=== PATIENT | male | born 1985 | race Hispanic/Latino ===

== ENCOUNTER 2021-09-28 19:16 | Emergency (ER) | payer BC, OTHER ==
[~2021-09-28] VITALS: Ht 167.6 cm; Wt 72.6 kg
[2021-09-28] MEDS ORDERED: LACTATED RINGER'S 1,000 ML INJ ONE ×2 (19:45→21:15)
[2021-09-28 19:50] LABS: BASOPHILS # (AUTO) 0.1 (0.0-0.1); BASOPHILS % 1.1 % (0.0-1.0); EOSINOPHILS # (AUTO) 0.1 (0.0-0.4); EOSINOPHILS % 2.2 % (0.0-6.0); HEMATOCRIT 40.1 % (38.2-49.6); LYMPHOCYTES # (AUTO) 2.3 (1.0-3.2); LYMPHOCYTES % 35.3 % (18.0-39.1); MEAN CORPUSCULAR HEMOGLOBIN 33.5 pg (28-32); MEAN CORPUSCULAR HGB CONC 34.9 g/dL (31-35); MEAN CORPUSCULAR VOLUME 95.9 fL (81-99); MONOCYTES # (AUTO) 0.8 (0.2-0.8); NEUTROPHILS # (AUTO) 3.1 (2.1-6.9); NEUTROPHILS % 48.6 % (38.7-80.0); PLATELET COUNT 358 x10e3/uL (140-360); RED BLOOD COUNT 4.18 x10e6/uL (4.3-5.7); RED CELL DISTRIBUTION WIDTH 12.6 % (11.7-14.4)
[2021-09-28 20:13] LABS: ALBUMIN 3.5 g/dL (3.5-5.0); ALBUMIN/GLOBULIN RATIO 0.9 (0.8-2.0); ANION GAP 18.6 mmol/L (8-16); CALCIUM 8.4 mg/dL (8.4-10.2); CREATININE, SERUM 0.76 mg/dL (0.72-1.25); POTASSIUM 3.6 mmol/L (3.5-5.1)
[2021-09-28 20:17] LABS: SALICYLATE < 5.0 mg/dL (0-30)
[2021-09-28 20:58] LABS: CLARITY,URINE CLEAR (CLEAR); COLOR,URINE YELLOW (YELLOW)
[2021-09-28 20:59] LABS: AMPHETAMINES SCREEN,URINE NEGATIVE (NEGATIVE); BENZODIAZEPINES SCREEN,URINE NEGATIVE (NEGATIVE); KETONES,URINE 1+ (NEGATIVE); LEUKOCYTE ESTERASE ,URINE NEGATIVE (NEGATIVE); NITRITE,URINE NEGATIVE (NEGATIVE); PHENCYCLIDINE SCREEN,URINE NEGATIVE (NEGATIVE); PROTEIN,URINE DIPSTICK NEGATIVE (NEGATIVE); URINE UROBILINOGEN 0.2 mg/dL (0.2 - 1)
== END 2021-09-28 21:36 | disposition home or self-care (01) ==
LOC: ER 19:32
DX: F10.10 Alcohol abuse, uncomplicated (principal); E11.65 Type 2 diabetes mellitus with hyperglycemia
CPT/HCPCS: 36415; 70450; 71045; 80053; 80307; 80320; 80329 ×2; 81001; 82948; 84484; 85025; 93005; 99284; J7121

== ENCOUNTER 2022-09-28 03:58 | Emergency (ER) | payer SELFPAY ==
[~2022-09-28] VITALS: Ht 170.2 cm; Wt 52.6 kg
[2022-09-28] MEDS ORDERED: SODIUM CHLORIDE 0.9% 1000ML 1,000 ML IV STA ×2 (04:12→06:04)
[2022-09-28 05:09] LABS: BASOPHILS % 0.5 % (0.0-1.0); EOSINOPHILS # (AUTO) 0.1 (0.0-0.4); EOSINOPHILS % 1.4 % (0.0-6.0); HEMATOCRIT 40.3 % (38.2-49.6); HEMOGLOBIN 14.1 g/dL (14.0-18.0); LYMPHOCYTES # (AUTO) 2.6 (1.0-3.2); LYMPHOCYTES % 36.1 % (18.0-39.1); MEAN CORPUSCULAR HEMOGLOBIN 33.4 pg (28-32); MEAN CORPUSCULAR VOLUME 95.5 fL (81-99); MONOCYTES # (AUTO) 0.9 (0.2-0.8); MONOCYTES % 12.6 % (4.4-11.3); NEUTROPHILS # (AUTO) 3.5 (2.1-6.9); NEUTROPHILS % 48.2 % (38.7-80.0); PLATELET COUNT 372 x10e3/uL (140-360); RED BLOOD COUNT 4.22 x10e6/uL (4.3-5.7); RED CELL DISTRIBUTION WIDTH 11.8 % (11.7-14.4)
[2022-09-28] MEDS ORDERED: SODIUM CHLORIDE 0.9% 1000ML 1,000 ML IV ONE (05:15)
[2022-09-28 05:21] LABS: ALANINE AMINOTRANSFERASE 14 IU/L (0-55); ALBUMIN 3.8 g/dL (3.5-5.0); ALBUMIN/GLOBULIN RATIO 1.2 (0.8-2.0); ALKALINE PHOSPHATASE 131 IU/L (40-150); ANION GAP 15.5 mmol/L (8-16); BLOOD UREA NITROGEN 15 mg/dL (7-26); BUN/CREATININE RATIO 16 (6-25); CALCIUM 9.5 mg/dL (8.4-10.2); CARBON DIOXIDE 23 mmol/L (22-29); CHLORIDE 103 mmol/L (98-107); CREATINE KINASE 51 IU/L (30-200); CREATININE, SERUM 0.93 mg/dL (0.72-1.25); GLUCOSE 226 mg/dL (74-118); POTASSIUM 3.5 mmol/L (3.5-5.1); SODIUM 138 mmol/L (136-145)
[2022-09-28] MEDS ORDERED: KETOROLAC TROMETHAMINE 30 MG/ML VIAL IV STA (05:44)
[2022-09-28 07:24] VITALS: BP 122/82; PULSE 100; RESP 16; TEMP 98.6; O2SAT 100
[2022-09-29] MEDS ORDERED: ATIVAN1 MG PO ×2 (00:30→00:40)
== END 2022-09-28 07:20 | disposition home or self-care (01) ==
LOC: ER 04:02
DX: R06.02 Shortness of breath (principal); R00.0 Tachycardia, unspecified; M79.10 Myalgia, unspecified site; F14.10 Cocaine abuse, uncomplicated; R94.31 Abnormal electrocardiogram [ECG] [EKG]
CPT/HCPCS: 36415; 71045; 80053; 82550; 82553; 83690; 83880; 84484; 85025; 93005; 99284; J1885; J7030

== ENCOUNTER 2022-09-28 20:19 | Emergency (ER) | payer SELFPAY ==
[~2022-09-28] VITALS: Ht 170.2 cm; Wt 52.6 kg
[2022-09-28] MEDS ORDERED: SODIUM CHLORIDE 0.9% 1000ML 1,000 ML IV STA ×2 (20:21)
[2022-09-28] MEDS ORDERED: KETOROLAC TROMETHAMINE 30 MG/ML VIAL IV STA (20:21)
[2022-09-28 21:09] LABS: BASOPHILS # (AUTO) 0.1 (0.0-0.1); BASOPHILS % 0.7 % (0.0-1.0); EOSINOPHILS # (AUTO) 0.2 (0.0-0.4); EOSINOPHILS % 2.6 % (0.0-6.0); HEMATOCRIT 40.3 % (38.2-49.6); HEMOGLOBIN 13.9 g/dL (14.0-18.0); LYMPHOCYTES # (AUTO) 2.1 (1.0-3.2); LYMPHOCYTES % 29.5 % (18.0-39.1); MEAN CORPUSCULAR HEMOGLOBIN 33.3 pg (28-32); MEAN CORPUSCULAR HGB CONC 34.5 g/dL (31-35); MEAN CORPUSCULAR VOLUME 96.4 fL (81-99); MONOCYTES # (AUTO) 0.8 (0.2-0.8); NEUTROPHILS # (AUTO) 3.8 (2.1-6.9); NEUTROPHILS % 53.6 % (38.7-80.0); PLATELET COUNT 449 x10e3/uL (140-360); RED BLOOD COUNT 4.18 x10e6/uL (4.3-5.7); RED CELL DISTRIBUTION WIDTH 11.8 % (11.7-14.4)
[2022-09-28 21:17] LABS: CLARITY,URINE CLEAR (CLEAR); COLOR,URINE YELLOW (YELLOW); KETONES,URINE TRACE (NEGATIVE); LEUKOCYTE ESTERASE ,URINE NEGATIVE (NEGATIVE); NITRITE,URINE NEGATIVE (NEGATIVE); PROTEIN,URINE DIPSTICK NEGATIVE (NEGATIVE)
[2022-09-28 21:18] LABS: URINE UROBILINOGEN 0.2 mg/dL (0.2 - 1)
[2022-09-28 21:21] LABS: AMPHETAMINES SCREEN,URINE NEGATIVE (NEGATIVE); BENZODIAZEPINES SCREEN,URINE NEGATIVE (NEGATIVE); PHENCYCLIDINE SCREEN,URINE NEGATIVE (NEGATIVE)
[2022-09-28 21:31] LABS: ALANINE AMINOTRANSFERASE 18 IU/L (0-55); ALBUMIN 3.9 g/dL (3.5-5.0); ALBUMIN/GLOBULIN RATIO 1.2 (0.8-2.0); ALKALINE PHOSPHATASE 114 IU/L (40-150); ANION GAP 16.1 mmol/L (8-16); BLOOD UREA NITROGEN 11 mg/dL (7-26); BUN/CREATININE RATIO 16 (6-25); CALCIUM 9.7 mg/dL (8.4-10.2); CARBON DIOXIDE 20 mmol/L (22-29); CHLORIDE 107 mmol/L (98-107); CREATINE KINASE 69 IU/L (30-200); CREATININE, SERUM 0.69 mg/dL (0.72-1.25); GLUCOSE 167 mg/dL (74-118); POTASSIUM 3.1 mmol/L (3.5-5.1); SODIUM 140 mmol/L (136-145)
[2022-09-28] MEDS ORDERED: LORAZEPAM INJ 2 MG/ML VIAL IV STA (23:33)
[2022-09-28] MEDS ORDERED: METOPROLOL TARTRATE INJ 1 MG/ML VIAL IV STA (23:33)
[2022-09-29] MEDS ORDERED: ATIVAN1 MG PO ×2 (00:30→00:40)
[2022-09-29 00:34] VITALS: O2SAT 100
== END 2022-09-29 00:36 | disposition home or self-care (01) ==
LOC: ER 20:21
DX: R00.0 Tachycardia, unspecified (principal); M79.18 Myalgia, other site; F14.10 Cocaine abuse, uncomplicated; M79.605 Pain in left leg; M79.604 Pain in right leg; R94.31 Abnormal electrocardiogram [ECG] [EKG]
CPT/HCPCS: 36415; 80053; 80307; 81001; 82550; 82553; 83690; 84484; 85025; 93005; 93970; 99284; J1885; J2060; J7030

== ENCOUNTER 2023-07-05 13:37 | Inpatient (IN) | payer BC, OTHER ==
[2023-07-05] VITALS (10 sets, daily range): BP systolic 95–148; BP diastolic 61–105; PULSE 100–111; RESP 18–24; TEMP 97.6–98.6; O2SAT 97–100
[~2023-07-05] VITALS: Ht 170.2 cm; Wt 58.1 kg
[~2023-07-05 13:37] MED LIST: ATIVAN1 MG PO
[2023-07-05 14:36] LABS: BASOPHILS # (AUTO) 0.1 (0.0-0.1); BASOPHILS % 1.2 % (0.0-1.0); EOSINOPHILS # (AUTO) 0.2 (0.0-0.4); EOSINOPHILS % 3.8 % (0.0-6.0); HEMATOCRIT 48.5 % (38.2-49.6); HEMOGLOBIN 16.6 g/dL (14.0-18.0); LYMPHOCYTES # (AUTO) 1.2 (1.0-3.2); LYMPHOCYTES % 20.8 % (18.0-39.1); MEAN CORPUSCULAR HEMOGLOBIN 32.3 pg (28-32); MEAN CORPUSCULAR HGB CONC 34.2 g/dL (31-35); MEAN CORPUSCULAR VOLUME 94.4 fL (81-99); MONOCYTES # (AUTO) 0.4 (0.2-0.8); MONOCYTES % 6.3 % (4.4-11.3); NEUTROPHILS % 67.4 % (38.7-80.0); PLATELET COUNT 394 x10e3/uL (140-360); RED BLOOD COUNT 5.14 x10e6/uL (4.3-5.7); RED CELL DISTRIBUTION WIDTH 12.4 % (11.7-14.4); WHITE BLOOD COUNT 5.86 x10e3/uL (4.8-10.8)
[2023-07-05 14:38] LABS: INR 0.76; PROTHROMBIN TIME 10.8 seconds (11.9-14.5)
[2023-07-05] MEDS: SODIUM CHLORIDE 0.9% 1000ML 1,000 ML IV STA ×2 (14:38→15:20)
[2023-07-05 14:39] LABS: PARTIAL THROMBOPLASTIN TIME 31.4 seconds (23.8-35.5)
[2023-07-05 14:46] LABS: ALANINE AMINOTRANSFERASE 18 IU/L (0-55); ALBUMIN 4.2 g/dL (3.5-5.0); ALBUMIN/GLOBULIN RATIO 0.9 (0.8-2.0); ALKALINE PHOSPHATASE 224 IU/L (40-150); ANION GAP 25.2 mmol/L (8-16); BILIRUBIN,TOTAL 0.4 mg/dL (0.2-1.2); BLOOD UREA NITROGEN 8 mg/dL (7-26); BUN/CREATININE RATIO 5 (6-25); CALCIUM 9.9 mg/dL (8.4-10.2); CARBON DIOXIDE 10 mmol/L (22-29); CHLORIDE 86 mmol/L (98-107); CREATINE KINASE 370 IU/L (30-200); CREATININE, SERUM 1.52 mg/dL (0.72-1.25); EST GLOMERULAR FILTRATION RATE 59 ML/MIN (>=60); LIPASE 79 U/L (8-78); MAGNESIUM 1.9 MG/DL (1.3-2.1); POTASSIUM 4.2 mmol/L (3.5-5.1); TOTAL PROTEIN 9.1 g/dL (6.5-8.1)
[2023-07-05 14:48] LABS: CLARITY,URINE CLEAR (CLEAR); COLOR,URINE YELLOW (YELLOW); GLUCOSE, URINE 500 (NEGATIVE); LEUKOCYTE ESTERASE ,URINE NEGATIVE (NEGATIVE); NITRITE,URINE NEGATIVE (NEGATIVE); PH,URINE 5 (5 - 7); PROTEIN,URINE DIPSTICK NEGATIVE (NEGATIVE)
[2023-07-05 14:49] LABS: BILIRUBIN,URINE NEGATIVE (NEGATIVE); KETONES,URINE 2+ (NEGATIVE); URINE UROBILINOGEN 0.2 mg/dL (0.2 - 1)
[2023-07-05 14:52] LABS: AMPHETAMINES SCREEN,URINE NEGATIVE (NEGATIVE); BENZODIAZEPINES SCREEN,URINE NEGATIVE (NEGATIVE); CANNABINOIDS SCREEN,URINE POSITIVE (NEGATIVE); METHADONE SCREEN, URINE NEGATIVE (NEGATIVE); OPIATES SCREEN,URINE NEGATIVE (NEGATIVE); PHENCYCLIDINE SCREEN,URINE NEGATIVE (NEGATIVE)
[2023-07-05 14:57] LABS: TROPONIN I < 0.001 ng/mL (0-0.300)
[2023-07-05 14:59] LABS: SODIUM 117 mmol/L (136-145)
[2023-07-05] MEDS: INSULIN REGULAR, HUMAN 100 UNIT/1 ML IV ONE (14:59)
[2023-07-05] MEDS: KETOROLAC TROMETHAMINE 30 MG/ML VIAL IV STA (15:04)
[2023-07-05 15:05] LABS: RBC,URINE 0-5 /HPF (0-5)
[2023-07-05 15:07] LABS: GLUCOSE 844 mg/dL (74-118)
[2023-07-05] MEDS ORDERED: IOPAMIDOL 370 MG/ML 100 ML INFUS..BTL INJ ONE (15:11)
[2023-07-05] MEDS: INSULIN REGULAR, HUMAN 3ML VL 100 UNIT in SODIUM CHLORIDE 0.9% 100 ML IV SCH (15:38)
[2023-07-05] MEDS: SODIUM CHLORIDE 0.9% 1000ML 1,000 ML IV SCH (16:52)
[2023-07-05] MEDS ORDERED: GLIPIZIDE5 MG PO (17:05)
[2023-07-05] MEDS ORDERED: EFFEXOR XR150 MG PO (17:05)
[2023-07-05] MEDS ORDERED: HUMULIN R100 UNIT/2 INJ (17:05)
[2023-07-05] MEDS ORDERED: NOVOLOG100 UNIT/1 SC (17:05)
[2023-07-05] MEDS ORDERED: LISINOPRIL20 MG PO (17:05)
[2023-07-05] MEDS ORDERED: FIASP 100100 UNIT/1 (17:05)
[2023-07-05] MEDS ORDERED: BUSPIRONE HCL10 MG PO (17:05)
[2023-07-05] MEDS ORDERED: NEURONTIN300 MG PO (17:05)
[2023-07-05] MEDS ORDERED: TRESIBA100 UNIT/1 (17:05)
[2023-07-05] MEDS ORDERED: LABETALOL HCL 5 MG/ML 20ML VIAL IV PRN (17:15)
[2023-07-05] MEDS: DEXTROSE 5%/0.45% SOD CHL 1,000 ML IV SCH (18:04)
[2023-07-05] MEDS: ONDANSETRON HCL INJ 2MG/ML 2ML 2 MG/ML VIAL IV STA (18:21)
[2023-07-05 18:28] LABS: ANION GAP 14.6 mmol/L (8-16); CREATININE, SERUM 0.69 mg/dL (0.72-1.25); MAGNESIUM 1.5 MG/DL (1.3-2.1)
[2023-07-05 18:30] LABS: POTASSIUM 2.6 mmol/L (3.5-5.1)
[2023-07-05] MEDS: POTASSIUM CHLORIDE 20MEQ/100ML 200 ML IV PRN ×2 (18:49→21:00)
[2023-07-05] MEDS ORDERED: POTASSIUM CHLORIDE 20MEQ/100ML 100 ML ONE (18:51)
[2023-07-05] MEDS: ALPRAZOLAM 0.5 MG TAB PO PRN (20:09)
[2023-07-05] MEDS: TRAZODONE HCL 50 MG TAB PO PRN (20:09)
[2023-07-05] MEDS: GABAPENTIN 300 MG CAP PO SCH (20:09)
[2023-07-05 22:33] LABS: ANION GAP 16.4 mmol/L (8-16); CALCIUM 8.7 mg/dL (8.4-10.2); CREATININE, SERUM 0.63 mg/dL (0.72-1.25); MAGNESIUM 1.7 MG/DL (1.3-2.1)
[2023-07-05 22:55] LABS: POTASSIUM 3.4 mmol/L (3.5-5.1)
[2023-07-05 22:58] LABS: TROPONIN I 0.004 ng/mL (0-0.300)
[2023-07-05] MEDS: POTASSIUM CHLORIDE 20MEQ/100ML 100 ML IV PRN (23:42)
[2023-07-05] MEDS: MAGNESIUM SULF 1GRAM/DEXTROSE 100 ML IV PRN (23:43)
[2023-07-05] MEDS: MAGNESIUM SULF 1GRAM/DEXTROSE 100 ML IV ONE (23:44)
[2023-07-06] VITALS (27 sets, daily range): BP systolic 86–147; BP diastolic 54–100; PULSE 68–122; RESP 17–30; TEMP 97.8–98.2; O2SAT 82–100
[2023-07-06 00:32] LABS: ANION GAP 12.5 mmol/L (8-16); CALCIUM 8.7 mg/dL (8.4-10.2); CREATININE, SERUM 0.64 mg/dL (0.72-1.25); MAGNESIUM 1.7 MG/DL (1.3-2.1); POTASSIUM 3.5 mmol/L (3.5-5.1)
[2023-07-06 06:08] LABS: BASOPHILS # (AUTO) 0.1 (0.0-0.1); BASOPHILS % 1.1 % (0.0-1.0); EOSINOPHILS # (AUTO) 0.7 (0.0-0.4); EOSINOPHILS % 13.1 % (0.0-6.0); HEMATOCRIT 40.3 % (38.2-49.6); HEMOGLOBIN 13.4 g/dL (14.0-18.0); LYMPHOCYTES # (AUTO) 1.6 (1.0-3.2); LYMPHOCYTES % 28.5 % (18.0-39.1); MEAN CORPUSCULAR HEMOGLOBIN 31.1 pg (28-32); MEAN CORPUSCULAR HGB CONC 33.3 g/dL (31-35); MEAN CORPUSCULAR VOLUME 93.5 fL (81-99); MONOCYTES # (AUTO) 0.7 (0.2-0.8); MONOCYTES % 12.9 % (4.4-11.3); NEUTROPHILS # (AUTO) 2.5 (2.1-6.9); NEUTROPHILS % 44.2 % (38.7-80.0); PLATELET COUNT 293 x10e3/uL (140-360); RED BLOOD COUNT 4.31 x10e6/uL (4.3-5.7); RED CELL DISTRIBUTION WIDTH 12.2 % (11.7-14.4); WHITE BLOOD COUNT 5.65 x10e3/uL (4.8-10.8)
[2023-07-06 06:29] LABS: CREATINE KINASE 268 IU/L (30-200)
[2023-07-06 06:37] LABS: TROPONIN I < 0.001 ng/mL (0-0.300)
[2023-07-06 07:20] LABS: ANION GAP 10.1 mmol/L (8-16); CALCIUM 8.2 mg/dL (8.4-10.2); CREATININE, SERUM 0.59 mg/dL (0.72-1.25); MAGNESIUM 1.9 MG/DL (1.3-2.1)
[2023-07-06 07:26] LABS: POTASSIUM 3.1 mmol/L (3.5-5.1)
[2023-07-06] MEDS: VENLAFAXINE HCL 75 MG CAPCR PO SCH (08:09)
[2023-07-06] MEDS: BUSPIRONE HCL 5 MG TAB PO SCH (08:09)
[2023-07-06 11:19] LABS: ANION GAP 9.7 mmol/L (8-16); CALCIUM 8.3 mg/dL (8.4-10.2); CARBON DIOXIDE 18 mmol/L (22-29); CHLORIDE 111 mmol/L (98-107); CREATININE, SERUM 0.57 mg/dL (0.72-1.25); EST GLOMERULAR FILTRATION RATE 127 ML/MIN (>=60); GLUCOSE 133 mg/dL (74-118); MAGNESIUM 1.8 MG/DL (1.3-2.1); POTASSIUM 3.7 mmol/L (3.5-5.1); SODIUM 135 mmol/L (136-145)
[2023-07-06 11:22] LABS: BUN/CREATININE RATIO 9 (6-25)
[2023-07-06 11:34] LABS: BLOOD UREA NITROGEN < 5 mg/dL (7-26)
[2023-07-06] MEDS ORDERED: [UNRECOGNIZED DRUG - OTHER] (12:13)
[2023-07-06] MEDS ORDERED: [UNRECOGNIZED DRUG - OTHER] (12:13)
[2023-07-06] MEDS ORDERED: LANTUS 3ML100 UNITS/ SC (12:13)
[2023-07-06] MEDS ORDERED: GLIMEPIRIDE2 MG PO (12:13)
[2023-07-06] MEDS ORDERED: [UNRECOGNIZED DRUG - OTHER] (12:13)
[2023-07-06] MEDS ORDERED: ABILIFY5 MG PO (12:13)
[2023-07-06] MEDS ORDERED: HYDROX PO (12:13)
[2023-07-06] MEDS: ARIPIPRAZOLE 5 MG TABLET PO SCH (14:20)
[2023-07-06 14:41] LABS: CREATINE KINASE 226 IU/L (30-200)
[2023-07-06 14:52] LABS: TROPONIN I < 0.001 ng/mL (0-0.300)
[2023-07-06 15:01] LABS: ANION GAP 11.6 mmol/L (8-16); CALCIUM 8.3 mg/dL (8.4-10.2); CREATININE, SERUM 0.62 mg/dL (0.72-1.25); POTASSIUM 3.6 mmol/L (3.5-5.1)
[2023-07-06 18:28] LABS: ANION GAP 8.9 mmol/L (8-16); BLOOD UREA NITROGEN < 5 mg/dL (7-26); BUN/CREATININE RATIO 8 (6-25); CALCIUM 7.2 mg/dL (8.4-10.2); CARBON DIOXIDE 16 mmol/L (22-29); CHLORIDE 115 mmol/L (98-107); CREATININE, SERUM 0.59 mg/dL (0.72-1.25); EST GLOMERULAR FILTRATION RATE 126 ML/MIN (>=60); GLUCOSE 165 mg/dL (74-118); MAGNESIUM 1.4 MG/DL (1.3-2.1); SODIUM 137 mmol/L (136-145)
[2023-07-06 18:29] LABS: POTASSIUM 2.9 mmol/L (3.5-5.1)
[2023-07-06] MEDS: POTASSIUM CHLORIDE 20 MEQ TAB CR PO ONE (19:04)
[2023-07-06] MEDS: MAGNESIUM SULF 1GRAM/DEXTROSE 100 ML IV PRN (19:05)
[2023-07-06 22:30] LABS: ANION GAP 14.2 mmol/L (8-16); CREATININE, SERUM 0.77 mg/dL (0.72-1.25); MAGNESIUM 1.8 MG/DL (1.3-2.1)
[2023-07-06 22:33] LABS: CALCIUM 8.7 mg/dL (8.4-10.2); POTASSIUM 4.2 mmol/L (3.5-5.1)
[2023-07-07] VITALS (10 sets, daily range): BP systolic 105–131; BP diastolic 66–97; PULSE 85–103; RESP 17–23; TEMP 97.7–98; O2SAT 95–100
[2023-07-07 03:21] LABS: ANION GAP 14.5 mmol/L (8-16); CALCIUM 8.9 mg/dL (8.4-10.2); CREATININE, SERUM 0.62 mg/dL (0.72-1.25); MAGNESIUM 1.7 MG/DL (1.3-2.1); POTASSIUM 3.5 mmol/L (3.5-5.1)
[2023-07-07 06:51] LABS: ANION GAP 15.2 mmol/L (8-16); BLOOD UREA NITROGEN < 5 mg/dL (7-26); CALCIUM 8.4 mg/dL (8.4-10.2); CARBON DIOXIDE 16 mmol/L (22-29); CHLORIDE 108 mmol/L (98-107); CREATININE, SERUM 0.58 mg/dL (0.72-1.25); EST GLOMERULAR FILTRATION RATE 126 ML/MIN (>=60); GLUCOSE 174 mg/dL (74-118); MAGNESIUM 1.6 MG/DL (1.3-2.1); SODIUM 136 mmol/L (136-145)
[2023-07-07 06:59] LABS: BUN/CREATININE RATIO 9 (6-25); POTASSIUM 3.2 mmol/L (3.5-5.1)
[2023-07-07] MEDS: INSULIN GLARGINE 100 UNITS/ML VIAL SQ SCH (09:38)
[2023-07-07] MEDS ORDERED: DEXTROSE 50% SYRINGE 50 ML IV PRN (11:00)
[2023-07-07] MEDS: INSULIN REGULAR, HUMAN 100 UNIT/1 ML SQ SCH (11:49)
== END 2023-07-07 13:13 | disposition home or self-care (01) | DRG 638 ==
LOC: ER 14:01 → ERHOLD 15:35 → ICU 16:18
PROVIDERS: ADMIT Internal Medicine; ATTEND Internal Medicine
PROC: 4A043R1 Measurement of Venous Saturation, Peripheral, Percutaneous Approach (ICD-10-PCS; principal; 2023-07-05)
DX: E11.10 Type 2 diabetes mellitus with ketoacidosis without coma (principal); N17.9 Acute kidney failure, unspecified; F14.10 Cocaine abuse, uncomplicated; E11.65 Type 2 diabetes mellitus with hyperglycemia; Z79.4 Long term (current) use of insulin; Z79.84 Long term (current) use of oral hypoglycemic drugs; E87.6 Hypokalemia; R19.7 Diarrhea, unspecified; R00.0 Tachycardia, unspecified; F43.10 Post-traumatic stress disorder, unspecified; F41.9 Anxiety disorder, unspecified; F32.9 Major depressive disorder, single episode, unspecified; N20.0 Calculus of kidney; Z91.141 Patient's other noncompliance with medication regimen due to financial hardship; Z59.7 Insufficient social insurance and welfare support; Z11.52 Encounter for screening for COVID-19; Z79.899 Other long term (current) drug therapy
CPT/HCPCS: 36415; 70450; 71045; 74177; 80048; 80053; 80307; 81001; 82550; 82948; 83036; 83690; 83735; 84484; 85025; 85610; 85730; 93005; 99252; 99284; J1815; J1885; J3475; J3480; J7030; J7050; Q9967; U0002

== ENCOUNTER 2024-07-17 17:59 | Emergency (ER) | payer SELFPAY ==
[~2024-07-17] VITALS: Ht 170.2 cm; Wt 62.1 kg
[~2024-07-17 17:59] MED LIST changes: +ABILIFY5 MG PO; +BUSPIRONE HCL10 MG PO; +EFFEXOR XR150 MG PO; +FIASP 100100 UNIT/1; +GLIMEPIRIDE2 MG PO; +GLIPIZIDE5 MG PO; +HUMULIN R100 UNIT/2 INJ; +HYDROX PO; +LANTUS 3ML100 UNITS/ SC; +LISINOPRIL20 MG PO; +NEURONTIN300 MG PO; +NOVOLOG100 UNIT/1 SC; +TRESIBA100 UNIT/1; +[UNRECOGNIZED DRUG - OTHER]; +[UNRECOGNIZED DRUG - OTHER]; +[UNRECOGNIZED DRUG - OTHER]
[2024-07-17 18:13] VITALS: RESP 26; TEMP 98.9
[2024-07-17 18:38] LABS: BASOPHILS # (AUTO) 0.1 (0.0-0.1); BASOPHILS % 0.9 % (0.0-1.0); EOSINOPHILS % 0.4 % (0.0-6.0); HEMATOCRIT 39.2 % (38.2-49.6); HEMOGLOBIN 13.9 g/dL (14.0-18.0); LYMPHOCYTES # (AUTO) 1.3 (1.0-3.2); LYMPHOCYTES % 18.3 % (18.0-39.1); MEAN CORPUSCULAR HEMOGLOBIN 32.5 pg (28-32); MEAN CORPUSCULAR HGB CONC 35.5 g/dL (31-35); MEAN CORPUSCULAR VOLUME 91.6 fL (81-99); MONOCYTES # (AUTO) 0.7 (0.2-0.8); MONOCYTES % 9.9 % (4.4-11.3); NEUTROPHILS # (AUTO) 4.8 (2.1-6.9); NEUTROPHILS % 69.8 % (38.7-80.0); PLATELET COUNT 339 x10e3/uL (140-360); RED BLOOD COUNT 4.28 x10e6/uL (4.3-5.7); RED CELL DISTRIBUTION WIDTH 13.6 % (11.7-14.4); WHITE BLOOD COUNT 6.88 x10e3/uL (4.8-10.8)
[2024-07-17 18:43] LABS: AMPHETAMINES SCREEN,URINE NEGATIVE (NEGATIVE); BENZODIAZEPINES SCREEN,URINE NEGATIVE (NEGATIVE); CANNABINOIDS SCREEN,URINE NEGATIVE (NEGATIVE); COCAINE SCREEN,URINE POSITIVE (NEGATIVE); METHADONE SCREEN, URINE NEGATIVE (NEGATIVE); OPIATES SCREEN,URINE NEGATIVE (NEGATIVE); PHENCYCLIDINE SCREEN,URINE NEGATIVE (NEGATIVE)
[2024-07-17 19:01] LABS: ALBUMIN 4.1 g/dL (3.5-5.0); ALBUMIN/GLOBULIN RATIO 1.3 (0.8-2.0); ANION GAP 27.1 mmol/L (8-16); BILIRUBIN,TOTAL 0.4 mg/dL (0.2-1.2); CALCIUM 9.5 mg/dL (8.4-10.2); CREATININE, SERUM 0.87 mg/dL (0.72-1.25); TOTAL PROTEIN 7.3 g/dL (6.5-8.1)
[2024-07-17 19:12] LABS: POTASSIUM 3.1 mmol/L (3.5-5.1)
[2024-07-17] MEDS: SODIUM CHLORIDE 0.9% 1000ML 2,000 ML IV STA (19:47)
[2024-07-17] MEDS: KETOROLAC TROMETHAMINE 30 MG/ML VIAL IV STA (19:50)
[2024-07-17 20:45] VITALS: PULSE 104
[2024-07-17] MEDS: SODIUM CHLORIDE 0.9% 1000ML 1,000 ML IV STA (20:54)
[2024-07-17] MEDS: ONDANSETRON HCL INJ 2MG/ML 2ML 2 MG/ML VIAL IV STA (21:46)
[2024-07-17] MEDS: HYDROCODONE/APAP 5MG-325MG TAB PO ONE (21:48)
[2024-07-17] MEDS: INSULIN REGULAR, HUMAN 100 UNIT/1 ML IV STA (21:48)
[2024-07-17 22:53] LABS: ALBUMIN 3.5 g/dL (3.5-5.0); ALBUMIN/GLOBULIN RATIO 1.2 (0.8-2.0); ANION GAP 20.8 mmol/L (8-16); BILIRUBIN,TOTAL 0.3 mg/dL (0.2-1.2); CALCIUM 8.3 mg/dL (8.4-10.2); CREATININE, SERUM 0.72 mg/dL (0.72-1.25); TOTAL PROTEIN 6.4 g/dL (6.5-8.1)
[2024-07-17 22:54] LABS: POTASSIUM 2.8 mmol/L (3.5-5.1)
[2024-07-17 23:41] LABS: ABG PCO2 26 mmHg (35-45); ABG PH 7.37 (7.35-7.45)
[2024-07-17 23:42] LABS: ABG HCO3 15 mmol/L (22-26); ABG PO2 98 mmHg (80-105); ABG TCO2 16
[2024-07-18 00:31] VITALS: BP 135/98; O2SAT 100
[2024-07-18 01:21] LABS: ABG PH 7.37 (7.35-7.45)
[2024-07-18 01:22] LABS: ABG HCO3 15 mmol/L (22-26); ABG PCO2 26 mmHg (35-45); ABG PO2 98 mmHg (80-105); ABG TCO2 16
== END 2024-07-18 00:30 | disposition home or self-care (01) ==
LOC: ER 18:04
DX: R06.02 Shortness of breath (principal); R07.89 Other chest pain; M25.552 Pain in left hip; V43.52XA Car driver injured in collision with other type car in traffic accident, initial encounter; Y92.488 Other paved roadways as the place of occurrence of the external cause; F14.10 Cocaine abuse, uncomplicated; E11.65 Type 2 diabetes mellitus with hyperglycemia; I10 Essential (primary) hypertension; F41.9 Anxiety disorder, unspecified; Z87.442 Personal history of urinary calculi
CPT/HCPCS: 36415; 36600; 71046; 73502; 80053; 80307; 82805; 82948; 85025; 99284; J1885; J2405; J2470; J7030